=== PATIENT | female | born 1950 | race Two or more races ===

== ENCOUNTER 2018-11-18 12:22 | Emergency (ER) | payer OTHER ==
[~2018-11-18] VITALS: Ht 170.2 cm; Wt 82.6 kg
== END 2018-11-18 19:58 | disposition home or self-care (01) ==
LOC: ER 12:22
DX: K59.09 Other constipation (principal); R10.812 Left upper quadrant abdominal tenderness; K90.49 Malabsorption due to intolerance, not elsewhere classified

== ENCOUNTER 2019-04-23 05:20 | Day surgery (SDC) | payer OTHER | END 2019-04-23 10:00 | disposition home or self-care (01) | LOC: AMB-ENDOS 05:20 | DX: K57.30 Diverticulosis of large intestine without perforation or abscess without bleeding (principal); K64.8 Other hemorrhoids; Z12.11 Encounter for screening for malignant neoplasm of colon ==

== ENCOUNTER 2024-09-24 06:40 | Day surgery (SDC) | payer OTHER ==
[2024-09-24] MEDS ORDERED: DIPHENHYDRAMINE HCL 50 MG/ML VIAL 1ML IV ONE (09:30)
[2024-09-24] MEDS ORDERED: fentaNYL CITRATE 50 MCG/ML AMPUL IV PUSH ONE (09:30)
[2024-09-24] MEDS ORDERED: MIDAZOLAM HCL 2 MG/2 ML VIAL IV ONE (09:30)
[2024-09-24] MEDS ORDERED: ONDANSETRON HCL 2 MG/ML VIAL IV ONE (09:30)
== END 2024-09-24 10:40 | disposition home or self-care (01) ==
LOC: AMB-ENDOS 06:40
PROVIDERS: ATTEND Colon & Rectal Surgery
DX: K59.00 Constipation, unspecified (principal); K63.5 Polyp of colon; K57.30 Diverticulosis of large intestine without perforation or abscess without bleeding; K64.8 Other hemorrhoids; Z88.8 Allergy status to other drugs, medicaments and biological substances